=== PATIENT | female | born 1990 | race Caucasian/White ===

== ENCOUNTER 2018-07-17 14:53 | Emergency (ER) | payer MEDICAID ==
[2018-07-17] MEDS ORDERED: DOXYCYCLINE 100 MG TABLET PO STA (16:33)
[2018-07-17] MEDS ORDERED: predniSONE 20 MG TABLET PO STA (16:34)
--- NOTE | 2018-07-17 16:36 | ED Physician Documentation ---
History of Present Illness - Stated complaint Stated Complaint: RASH NECK/ARM - Chief complaint Chief Complaint: Wound - History obtained from History obtained from: Patient - History of Present Illness Timing: Today Pain level max: 0 Pain level now: 0 Improved by: nothing Worsened by: nothing - Additonal information Additional information: states hives to the L arm and a rash to the L neck today. States she is allergic to sulfa. Negative preg test a few days ago. Review of Systems Constitutional: denies: Fever, Chills Ears: denies: Ear pain Nose: denies: Rhinorrhea / runny nose, Congestion Throat: denies: Sore throat : denies: Now EGA Musculoskeletal: denies: Neck pain, Back pain Neurologic: denies: Headache PD PAST MEDICAL HISTORY - Past Medical History Past Medical History: Yes Respiratory: Asthma - Present Medications Home Medications: Ambulatory Orders Medication Instructions Recorded Confirmed Doxycycline Hyclate 100 mg PO BID #20 capsule 07/17/18 predniSONE [Prednisone] 20 mg PO DAILY #5 tablet 07/17/18 - Allergies Allergies/Adverse Reactions: Allergies Allergy/AdvReac Type Severity Reaction Status Date / Time Sulfa (Sulfonamide Allergy Rash Verified 07/17/18 15:13 Antibiotics) - Social History Does the pt smoke?: Yes Smoking Status: Current every day smoker PD ED PE NORMAL - Vitals Vital signs reviewed: Yes - General General: Alert and oriented X 3, No acute distress - HEENT HEENT: Moist mucous membranes - Neck Neck: Supple, no meningeal sign, Other (L side of the neck - 3 areas 0.2cm, indurated. no fluctuance or drainage. ) - Cardiac Cardiac: RRR - Respiratory Respiratory: No respiratory distress, Clear bilaterally - Derm Derm: Warm and dry, Other (mild urticaria to the L upper arm. no scaling. ) - Neuro Neuro: Alert and oriented X 3 Results - Vitals Vitals: Vital Signs - 24 hr 07/17/18 07/17/18 15:11 16:45 Temperature 36.1 C L 36.1 C L Heart Rate 82 78 Respiratory 16 16 Rate Blood Pressure 132/79 H 141/97 H O2 Saturation 99 98 PD MEDICAL DECISION MAKING - ED course Complexity details: considered differential, d/w patient ED course: Patient is a 28-year-old female who presents to the emergency department with 3 small areas of cellulitis on the left neck. Will place on antibiotics for this. Also has what appears to be urticaria on the left upper inner arm, other differential would include possible ringworm. There is no scaling or heaped up edges and it did come on suddenly, will treat with steroids. Will have her follow-up with her doctor for further care. Patient counseled regarding signs and symptoms for which I believe and urgent re-evaluation would be necessary. Patient with good understanding of and agreement to plan and is comfortable going home at this time This document was made in part using voice recognition software. While efforts are made to proofread this document, sound alike and grammatical errors may occur. - Sepsis Event Vital Signs: Vital Signs - 24 hr 07/17/18 07/17/18 15:11 16:45 Temperature 36.1 C L 36.1 C L Heart Rate 82 78 Respiratory 16 16 Rate Blood Pressure 132/79 H 141/97 H O2 Saturation 99 98 Departure - Departure Disposition: 01 Home, Self Care Clinical Impression: Urticaria Cellulitis Qualifiers: Site of cellulitis: neck Qualified Code(s): L03.221 - Cellulitis of neck Condition: Good Instructions: ED Infec Skin Cellulitis Follow-Up: your,doctor in 3 days for wound check [Other] Prescriptions: Doxycycline Hyclate 100 mg PO BID #20 capsule predniSONE [Prednisone] 20 mg PO DAILY #5 tablet Comments: Return if you worsen. Take all antibiotics until gone. Discharge Date/Time: 07/17/18 16:45
[2018-07-17 16:46] VITALS: BP 141/97
== END 2018-07-17 16:45 | disposition home or self-care (01) ==
LOC: ED 14:53
DX: L50.9 Urticaria, unspecified (principal); L03.221 Cellulitis of neck; F17.200 Nicotine dependence, unspecified, uncomplicated
CPT/HCPCS: 99283; A9270; J7512